=== PATIENT | female | born 1960 | race Caucasian/White ===

== ENCOUNTER → 2023-08-22 | Outpatient (CLI) | payer OTHER | LOC: LAB 16:25 → LAB SHORT 16:25 | DX: L97.911 Non-pressure chronic ulcer of unspecified part of right lower leg limited to breakdown of skin (principal) ==

== ENCOUNTER 2024-03-02 20:58 | Inpatient (IN) | payer OTHER ==
[~2024-03-02] VITALS: Ht 167.6 cm; Wt 90.7 kg
[2024-03-02] MEDS ORDERED: CALCITRIOL0.25 MC4 PO (21:15)
[2024-03-02] MEDS ORDERED: EUTHYROX175 MC1 PO (21:15)
[2024-03-02] MEDS ORDERED: LOSARTAN-HCTZ1 EACH PO (21:15)
[2024-03-02] MEDS ORDERED: albuterol sulfate HF INH (21:16)
[2024-03-02] MEDS ORDERED: ATOR40TA PO (21:16)
[2024-03-02] MEDS ORDERED: HYDHCL25 PO (21:17)
[2024-03-02 21:20] LABS: BASOPHILS ABSOLUTE AUTO 0.02 K/mm3 (0.00-0.23); BASOPHILS PERCENT AUTO 0 % (0-2); EOSINOPHILS ABSOLUTE AUTO 0.19 K/mm3 (0.00-0.68); EOSINOPHILS PERCENT AUTO 2 % (0-6); Hemoglobin 9.5 g/dL (11.5-16.0); IMMATURE GRAN ABSOLUTE AUTO 0.02 K/mm3 (0.00-0.10); IMMATURE GRAN PERCENT AUTO 0 % (0-1); LYMPHOCYTES ABSOLUTE AUTO 2.08 K/mm3 (0.84-5.20); LYMPHOCYTES PERCENT AUTO 25 % (21-46); MONOCYTES ABSOLUTE AUTO 0.38 K/mm3 (0.16-1.47); MONOCYTES PERCENT AUTO 5 % (4-13); Mean Corpuscular HGB Conc 35.2 g/dL (31.5-36.5); Mean Corpuscular Volume 85 fL (80-100); Mean Platelet Volume 10.6 fL (9.1-12.4); NEUTROPHILS PERCENT AUTO 67 % (41-73); Platelet Count 187 K/mm3 (150-400); RDW Coefficient Variation 13.2 % (11.7-14.2); RDW Standard Deviation 40.8 fL (35.1-46.3); Red Blood Cell Count 3.17 M/mm3 (3.80-5.20); White Blood Cell Count 8.19 K/mm3 (4.00-11.30)
[2024-03-02 21:24] LABS: Source, Urine Straight Cath
[2024-03-02 21:27] LABS: Bilirubin, Urine Neg (Neg); Blood, Urine 1+ (Neg); Glucose Qualitative, Urine 4+ (Neg); Ketones, Urine Neg (Neg); Leukocyte Esterase, Urine 2+ (Neg); Nitrite, Urine Neg (Neg); Protein, Urine 1+ (Neg); Specific Gravity, Urine 1.015 (1.003-1.022); Urobilinogen, Urine NORM (Normal)
[2024-03-02 21:42] LABS: Appearance, Urine Hazy (Clear); Color, Urine Pale Yellow (P-Yellow)
[2024-03-02 21:43] LABS: Bacteria Many /hpf; Squamous Epithelial Cells Few /hpf (Few)
[2024-03-02 21:45] LABS: Beta-hydroxybutyrate 0.7 mg/dL (0.2-2.8)
[2024-03-02 21:46] LABS: Albumin, Blood 3.3 g/dL (3.4-5.0); Albumin/Globulin Ratio 0.9 (0.8-1.8); Bilirubin, Total 0.2 mg/dL (0.1-1.0); Bun/Creatinine Ratio 17.4 (12.0-20.0); Calcium, Blood 8.7 mg/dL (8.5-10.1); Creatinine, Blood 2.24 mg/dL (0.40-1.00); Globulin, Blood 3.8 g/dL (2.2-4.0); Potassium, Blood 4.5 mmol/L (3.5-5.5); Total Protein, Blood 7.1 g/dL (6.4-8.2)
[2024-03-02] MEDS ORDERED: CefTRIAXone Sodium 1,000 MG in NS 100 ML IV ONE (21:50)
[2024-03-02] MEDS ORDERED: Insulin Regular 100 Unit/ML 1ML Dose SC ONE ×2 (22:05→23:00)
[2024-03-02] MEDS ORDERED: Ciprofloxacin 400MG/D5 200ML 200 ML IV ONE (22:10)
[2024-03-02] MEDS ORDERED: levETIRAcetam 1,000 MG in NS 100 ML IV ONE (22:20)
[2024-03-02] MEDS ORDERED: PHENYTOIN SODIUM IV ONE (22:50)
[2024-03-02] MEDS ORDERED: NS IV ONE (22:50)
[2024-03-02 22:56] LABS: PCO2 Venous 43.1 mmHg (38-42)
[2024-03-02 22:57] LABS: Base Excess Venous -5.3 mmol/L; Bicarbonate Venous 20.2 mmol/L (24.0-30.0)
[2024-03-02 23:11] LABS: Dilantin (Phenytoin), Total 9.4 ug/mL (10.0-20.0)
[2024-03-03] MEDS ORDERED: FLU VACC TS2024-25(6MOS UP)/PF 45 MCG/0.5 ML SYRINGE IM ONE (00:05)
[2024-03-03] MEDS ORDERED: Acetaminophen 325 MG TABLET PO PRN (00:10)
[2024-03-03] MEDS ORDERED: Ondansetron HCl 2 MG / ML 2ML Vial IV PRN (00:10)
[2024-03-03] MEDS ORDERED: Levothyroxine Sodium 0.175 MG TAB PO SCH (06:00)
[2024-03-03 07:07] LABS: Albumin, Blood 2.9 g/dL (3.4-5.0); Albumin/Globulin Ratio 0.8 (0.8-1.8); Bilirubin, Total 0.2 mg/dL (0.1-1.0); Calcium, Blood 8.3 mg/dL (8.5-10.1); Creatinine, Blood 2.06 mg/dL (0.40-1.00); Globulin, Blood 3.7 g/dL (2.2-4.0); Magnesium, Blood 1.5 mg/dL (1.6-2.4); Potassium, Blood 3.8 mmol/L (3.5-5.5); Total Protein, Blood 6.6 g/dL (6.4-8.2)
[2024-03-03 07:30] LABS: BASOPHILS ABSOLUTE AUTO 0.03 K/mm3 (0.00-0.23); BASOPHILS PERCENT AUTO 0 % (0-2); EOSINOPHILS ABSOLUTE AUTO 0.21 K/mm3 (0.00-0.68); EOSINOPHILS PERCENT AUTO 3 % (0-6); Hematocrit 26.4 % (33.0-51.0); IMMATURE GRAN ABSOLUTE AUTO 0.04 K/mm3 (0.00-0.10); IMMATURE GRAN PERCENT AUTO 1 % (0-1); LYMPHOCYTES ABSOLUTE AUTO 2.45 K/mm3 (0.84-5.20); LYMPHOCYTES PERCENT AUTO 30 % (21-46); MONOCYTES ABSOLUTE AUTO 0.52 K/mm3 (0.16-1.47); MONOCYTES PERCENT AUTO 6 % (4-13); Mean Corpuscular HGB 29.2 pg (26.0-34.0); Mean Corpuscular HGB Conc 34.1 g/dL (31.5-36.5); Mean Corpuscular Volume 86 fL (80-100); Mean Platelet Volume 10.6 fL (9.1-12.4); NEUTROPHILS ABSOLUTE AUTO 4.92 K/mm3 (1.96-9.15); NEUTROPHILS PERCENT AUTO 60 % (41-73); Platelet Count 179 K/mm3 (150-400); RDW Coefficient Variation 13.2 % (11.7-14.2); RDW Standard Deviation 41.1 fL (35.1-46.3); Red Blood Cell Count 3.08 M/mm3 (3.80-5.20); White Blood Cell Count 8.17 K/mm3 (4.00-11.30)
[2024-03-03] MEDS ORDERED: Insulin Regular 100 UNIT/ML 10ML Vial SC SCH (07:30)
[2024-03-03] MEDS ORDERED: PHENY100ER PO (08:33)
[2024-03-03 08:47] VITALS: BP 133/61
[2024-03-03] MEDS ORDERED: Lactobacil 2-S.Thermo-Bifido 1 1 Cap PO SCH (09:00)
[2024-03-03] MEDS ORDERED: Enoxaparin 30 MG/0.3 ML SYR SC SCH (09:00)
[2024-03-03] MEDS ORDERED: Losartan Potassium 50 MG Tab PO SCH (09:00)
[2024-03-03 11:00] VITALS: BP 127/68
[2024-03-03] MEDS ORDERED: PHENYTOIN SODI100 MG PO (11:14)
[2024-03-03] MEDS ORDERED: INSULANPEN SC (11:15)
[2024-03-03] MEDS ORDERED: INSULIN AS100 UNIT/8 SC (11:17)
--- NOTE | 2024-03-03 13:01 | NUR ---
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 HER FAMILY STATES HER TOUNG SWELLS UP AND SHE CANT SWALLOW OR BREATHE IF SHE CONSUMES IT. ADDED TO THE PT ALLERGY LIST AND NOTIFIED THE KITCHEN OF THE ALLERGY. AOC DIRECTOR INTELLIGENCE OFFICER MADE AWARE WELL.
--- NOTE | 2024-03-03 13:03 | NUR ---
CLAUSTRAPHOBIA- PT FAMILY AT THE BEDSIDE FILLING OUT THE MRI SCREENING FORM. THE PT APPEARED TO BE COMPLETELY PANICKED AT THE THOUGHT OF AN MRI. CALLED DR PATTON FOR A PRN DOSE OF ANXIETY MEDS TO HELP THE PT RELAX FOR THE MRI. TRAIN CONDUCTOR CALLED MRI TIME IS PLANNED FOR 1500. DR PATTON SUGGESTED GIVING THE MED 30 MIN PRIOR AT 1430.
[2024-03-03] MEDS ORDERED: Albuterol HFA200 ACT/6.7 GM INH INH PRN (13:20)
[2024-03-03] MEDS ORDERED: LORazepam 0.5 MG Tab PO ONE (14:30)
[2024-03-03 16:20] VITALS: BP 141/65
[2024-03-03] MEDS ORDERED: B-121000 MC3 PO (16:59)
[2024-03-03] MEDS ORDERED: Aspir 8181 MG PO (17:00)
[2024-03-03] MEDS ORDERED: OZEMPIC0.25 MG/02 SC (17:02)
[2024-03-03] MEDS ORDERED: NS 250 ML IV PRN (18:40)
--- NOTE | 2024-03-03 18:45 | NUR ---
SHIFT SUMMARY- PT WAS ADMITTED THROUGH THE ED FOR TOXIC METABOLIC ENCEPHALOPATHY. WHEN SHE ARRIVED ON MED FLOOR SHE WAS TALKING TO STAFF AND MID SCENTENCE SHE WENT SILENT AND STILL AND BEGAN TO GAZE LEFT. A LTIILE LATER SHE DID THE SAME AND HAD A GAZE RIGHT. PT HOME MEDS WERE RESTARTED ONCE SHE WAS ADMITTED. SHE HAD STOPPED TAKING THEM A WEEK OR MORE AGO FOR UNKNOWN REASONS. PT HAD HIGH BG, SHE REFUSED TO EAT HER LUNCH AFTER BEING TREATED FOR BG GREATER THAN 300. AT DINNER TIME HER BG WAS 299. PT FAMILY IS AT THE BEDSIDE ASSISTING THE PT WITH DINNER. THEY JUST CAME OUT AND INFORMED STAFF THE PT HAD ANOTHER "EPISODE" WHERE SHE JUST PAUSED AND GAZED OFF TO ONE SIDE. WILL COMPLETE BEDSIDE REPORT WITH NIGHT RN HUMBERTO.
[2024-03-03 19:46] VITALS: BP 130/60
[2024-03-03] MEDS ORDERED: Ciprofloxacin 400MG/D5 200ML 200 ML IV SCH (21:00)
[2024-03-03] MEDS ORDERED: Insulin Glargine-Yfgn 100 Unit/mL 3 ML SYR SC SCH (21:00)
[2024-03-04 03:23] VITALS: BP 130/60
--- NOTE | 2024-03-04 04:44 | NUR ---
SHIFT SUMMARY PATIENT HAD NO ACUTE CHANGES. NO SEIZURE ACTIVITY OBSERVED. AXOX 4 AND BEDREST. LBKA. PIV INTACT. IV ABX INFUSED. DENIES CHEST PAIN, SOB, AND N/V. CBG 307. VSS/AFEBRILE. PUREWICK IN PLACE FOR I&O'S. SLEPT ON/OFF. CALL LIGHT IN REACH. BED IN LOWEST POSITION. WILL CONTINUE TO MONITOR UNTIL DAY SHIFT NURSE ASSUMES CARE.
[2024-03-04 05:14] LABS: BASOPHILS ABSOLUTE AUTO 0.02 K/mm3 (0.00-0.23); BASOPHILS PERCENT AUTO 0 % (0-2); EOSINOPHILS ABSOLUTE AUTO 0.16 K/mm3 (0.00-0.68); EOSINOPHILS PERCENT AUTO 3 % (0-6); Hematocrit 25.6 % (33.0-51.0); Hemoglobin 8.9 g/dL (11.5-16.0); IMMATURE GRAN ABSOLUTE AUTO 0.02 K/mm3 (0.00-0.10); IMMATURE GRAN PERCENT AUTO 0 % (0-1); LYMPHOCYTES PERCENT AUTO 31 % (21-46); MONOCYTES ABSOLUTE AUTO 0.45 K/mm3 (0.16-1.47); MONOCYTES PERCENT AUTO 7 % (4-13); Mean Corpuscular HGB 29.3 pg (26.0-34.0); Mean Corpuscular HGB Conc 34.8 g/dL (31.5-36.5); Mean Corpuscular Volume 84 fL (80-100); Mean Platelet Volume 10.3 fL (9.1-12.4); NEUTROPHILS ABSOLUTE AUTO 3.55 K/mm3 (1.96-9.15); NEUTROPHILS PERCENT AUTO 58 % (41-73); Platelet Count 152 K/mm3 (150-400); RDW Coefficient Variation 13.2 % (11.7-14.2); RDW Standard Deviation 40.8 fL (35.1-46.3); Red Blood Cell Count 3.04 M/mm3 (3.80-5.20)
[2024-03-04 05:40] LABS: Bun/Creatinine Ratio 16.7 (12.0-20.0); Calcium, Blood 8.7 mg/dL (8.5-10.1); Creatinine, Blood 2.21 mg/dL (0.40-1.00); Potassium, Blood 3.9 mmol/L (3.5-5.5)
[2024-03-04 07:15] VITALS: BP 125/54
[2024-03-04 09:00] LABS: Dilantin (Phenytoin), Total 12.1 ug/mL (10.0-20.0)
[2024-03-04 14:39] VITALS: BP 144/71
--- NOTE | 2024-03-04 16:51 | NUR ---
PT FAMILY IS AT THE BEDSIDE- PT SITTING AT THE EOB, FAMILY STATES SHE JUST HAD AN EPISODE, PLACED A STAT ORDER FOR PROCALCITONIN LAB. CALLED LAB AND ASKED FOR A TECH TO COME DO THE DRAW JUAN ANTONIO. PER DR PATTON'S VERBAL ORDER EARLIER TODAY. PT HAS HAD A FEW EPISODES LIKE THIS TODAY BUT STAFF WERE NOT ABLE TO DETERMINE IF THEY JUST HAPPENED OR IF THE PT WAS JUST WAKING FROM SLEEP. THIS EPISODE WAS WITNESSED SO THE LAB WAS ORDERED.
--- NOTE | 2024-03-04 17:03 | NUR ---
CALLED DR TO TALK ABOUT THE PT ELEVATED BG. SPOKE ABOUT THE STAT LAB FOR THE RECENT EPISODE. THIS RN ORDERED PROCALCITONIN IN [place] OF PROLACTIN. CALLED LAB THEY WILL DRAW FOR PROLACTIN PROCALCITONIN WAS DC'D
[2024-03-04] MEDS ORDERED: Insulin Human Lispro 100 Units/ML 3ML Syringe SC SCH ×3 (17:20→21:00)
--- NOTE | 2024-03-04 18:29 | NUR ---
SHIFT SUMMARY- PT HAS HAD SEVERAL EPISODES. THIS EVENING THIS RN WITNESSED ONE WHERE THE PT WAS SITTING UP AT THE EOB AND SHE WAS LOOKING AT THIS RN. WHEN SHE WAS SPOKEN TO, THE PT HAD NO FACIAL RESPONSE; SHE TRACKED THIS RN WITH HER EYES BUT HER HEAD DID NOT TURN, THIS WAS THE LONGEST EPISODE OF NOTE AND HER EYELIDS TWITCHED (FLICKERED). LASTING APPROXIMATELY 1.5 TO 2 MINUTES, SHE DID NOT SEEM TO KNOW THIS RN WAS PRESENT AT ALL. MINUTES LATER SHE HAD NO RECOLECTION OF THE INCIDENT AT ALL. PT IS BACK TO HER BASELINE AT THIS TIME SITTING AT THE EOB EATING HER DINNER. PLACED A CALL TO FOOD [facility] [place] THE PT RECIEVED SUGAR FREE PUDDING ON HER TRAY. CLARIFIED WITH MORENO IN [facility] [place] THE PT HAS AN ALLERGY TO ARTIFICIAL SWEETENERS AND THEY CAN NOT BE SENT TO HER. SHE CHANGED THE DIET INFO TO REFLECT THAT ALLERGY. PT DID NOT RECIEVE THE PUDDING. THERE IS A SIGN ON THE ROOM DOOR TO PREVENT ACCIDENTAL INGESTION OF SUGAR FREE PRODUCTS.
[2024-03-04 19:27] VITALS: BP 143/64
[2024-03-05 03:59] VITALS: BP 139/62
--- NOTE | 2024-03-05 04:15 | NUR ---
SOFTWARE QUALITY AUTOMATION ENGINEER SUMMARY VSS. ACCU CHECK AT HS WAS 270, INSULIN COVERAGE ADMINISTERED - SEE MAR FOR DETAILS. SOME APPARENT CONFUSION NOTED WHEN SPEAKING TO PT DURING THE NIGHT, SHE WOULD LOOK AT NURSE WITH BLANK STARE WHEN ASKED SOME QUESTIONS, NO NOTED S/S SEIZURE ACTIVITY. ABLE TO REPOSITION SELF IN BED WITHOUT ASSIST. HAS BEEN RESTING QUIETLY WITH OCCASIONAL INTERRUPTION WHILE PLAYING ON PERSONAL LAP TOP COMPUTER. CURRENTLY RESTING QUIETLY IN BED WITHOUT NOTED DISTRESS. CALL LIGHTIN REACH, RAILS UP X 2 AND BED IN LOW POSITION FOR SAFETY. WILL CONTINUE TO MONITOR
[2024-03-05 07:33] VITALS: BP 147/57
--- NOTE | 2024-03-05 10:15 | NUR ---
AT 0900 WHILE PASSING MEDICATIONS IN PATIENT ROOM, PATIENT SITTING AT EDGE OF BED, ABLE TO HAVE CONVERSATION, ANSWER QUESTIONS, AND TAKE MEDICATIONS. AT 0909 PATIENT BEGAN TO GAZE TO THE RIGHT WITH BOTH EYES, STARING, STARTED LEANING TO THE RIGHT, PATIENT NOT RESPONSIVE, OBSERVED HAVING A SEIZURE; THIS RN AND HAND SPRING REPAIRER ASSISTED THE PATIENT INTO A LYING POSITION; MYOTONIC POSSIBLY; LASTED LESS THAN 1 MINUTE. PATIENT CAME TO; WAS ABLE TO MAKE EYE CONTACT AND INTERACT WITH STAFF; WAS AWARE SHE HAD A SEIZURE, STATED SHE FELT FINE; NO POSTICAL STATE OBSERVED, PATIENT APPEARED AT BASELINE PRIOR TO EVENT. DR. PATTON NOTIFIED; ORDERS PLACED.
[2024-03-05 10:54] LABS: BASOPHILS ABSOLUTE AUTO 0.03 K/mm3 (0.00-0.23); BASOPHILS PERCENT AUTO 1 % (0-2); EOSINOPHILS ABSOLUTE AUTO 0.17 K/mm3 (0.00-0.68); EOSINOPHILS PERCENT AUTO 3 % (0-6); Hematocrit 26.4 % (33.0-51.0); Hemoglobin 9.2 g/dL (11.5-16.0); IMMATURE GRAN ABSOLUTE AUTO 0.03 K/mm3 (0.00-0.10); IMMATURE GRAN PERCENT AUTO 1 % (0-1); LYMPHOCYTES ABSOLUTE AUTO 1.63 K/mm3 (0.84-5.20); LYMPHOCYTES PERCENT AUTO 27 % (21-46); MONOCYTES ABSOLUTE AUTO 0.36 K/mm3 (0.16-1.47); MONOCYTES PERCENT AUTO 6 % (4-13); Mean Corpuscular HGB 29.2 pg (26.0-34.0); Mean Corpuscular HGB Conc 34.8 g/dL (31.5-36.5); Mean Corpuscular Volume 84 fL (80-100); Mean Platelet Volume 10.6 fL (9.1-12.4); NEUTROPHILS ABSOLUTE AUTO 3.89 K/mm3 (1.96-9.15); NEUTROPHILS PERCENT AUTO 64 % (41-73); Platelet Count 172 K/mm3 (150-400); RDW Coefficient Variation 13.1 % (11.7-14.2); RDW Standard Deviation 40.1 fL (35.1-46.3); Red Blood Cell Count 3.15 M/mm3 (3.80-5.20); White Blood Cell Count 6.11 K/mm3 (4.00-11.30)
[2024-03-05 11:22] LABS: Anion Gap 12 mmol/L (3-11); Blood Urea Nitrogen 37 mg/dL (8-24); Bun/Creatinine Ratio 17.2 (12.0-20.0); CO2, Blood 23 mmol/L (21-32); Calcium, Blood 8.6 mg/dL (8.5-10.1); Chloride, Blood 103 mmol/L (98-108); Creatinine, Blood 2.15 mg/dL (0.40-1.00); Dilantin (Phenytoin), Total 12.1 ug/mL (10.0-20.0); Glomerular Filtration Rate 25 (60-); Glucose, Blood 336 mg/dL (70-99); Potassium, Blood 3.6 mmol/L (3.5-5.5); Sodium, Blood 134 mmol/L (136-145)
--- NOTE | 2024-03-05 13:39 | NUR ---
SEIZURE OBSERVED AND REPORTED FROM HOME VISITOR AT 1310; REPORTED PATIENT'S RIGHT EYE GAZE, TURNING TOWARDS RIGHT, PATIENT HEAD JERKING AND LIP SMACKING. LASTING 1.5 MINUTES. PATIENT HAD A SUBSEQUENT SEIZURE WHILE THIS RN PRESENT ABOUT 3 MINUTES AFTER THE 1310 EPISODE, LASTING 1.5 MINUTES. PATIENT APPEARING POSTICTAL. PATIENT UNABLE TO TELL US HER NAME OR WHERE SHE WAS; APPEARING FATIGUED. PATIENT PLACED BACK INTO BED. CALL MADE TO DR. PATTON; NEW ORDERS PLACED. 1340 PATIENT HAD ANOTHER SEIZURE; MORE AGGRESSIVE FACIAL MOVEMENTS AND LIP JERKING; MOSTLY ON RIGHT SIDE. LASTING [address] PATTON NOTIFIED. PATIENT IN BED, EEG SET UP BEING PERFORMED, NO SIGNS OR SYMPTOMS OF DISTRESS WITH PATIENT; APPEARING LETHARGIC.
[2024-03-05] MEDS ORDERED: levETIRAcetam 1,500 MG in NS 100 ML IV SCH (14:00)
[2024-03-05 15:47] VITALS: BP 148/75
--- NOTE | 2024-03-05 17:34 | NUR ---
SHIFT SUMMARY: PATIENT IS A&OX1-3 DEPENDING ON POSTICTAL STATE. SHE HAS HAD 5 OBSERVED SEIZURES TODAY; MOST RECENT ONE BEING NOTICED AT 1655 WHEN THIS RN WAS WALKING PAST THE PATIENT'S ROOM, PATIENT WAS SITTING AT THE EDGE OF THE BED, ON HER TABLE WHEN SHE WAS ACTIVELY IN A SEIZURE; SIMILAR STATES OF HER PREVIOUS ONES. UNSURE HOW LONG THIS CURRENT EPSIODE WAS, BUT LAST 1 MINUTE WHILE THIS RN WAS AT BEDSIDE. DR. PATTON NOTIFIED. ATTEMPT TO TRANSFER PATIENT TO [facility]; WAS DENIED, REQUESTING A 1:1 SITTER; WAS DENIED, GOING TO PLACE A CAMERA PRIOR TO TRANSFERRING TO PCU; DISCUSSED CASE WITH TRACK INSPECTOR AND DR. PATTON. PATIENT IS SITTING AT BEDSIDE, ON HER TABLE, ALERT, IS ABLE TO MADE EYE CONTACT WITH ME AND ANSWER QUESTIONS. SHE STATES THAT SHE STARTED HAVING SEIZURES THE DAY BEFORE YESTERDAY DUE TO NOT TAKING HER MEDICATIONS. SHE STATES THAT THEY COME WITHOUT A WARNING. SHE REPORTS THAT SHE HAS NEVER FALLEN DURING A SEIZURE. HER BED ALARM IS SET, CALL LIGHT WITHIN REACH, NO SIGNS OR SYMPTOMS OF DISTRESS, PLAN OF CARE ONGOING. ATIVAN BROUGHT UP TO DR. PATTON, NO NEW ORDERS.
--- NOTE | 2024-03-05 19:20 | NUR ---
AVASURE CAMERA SET UP FOR PATIENT. FAMILY AT BEDSIDE; SEIZURE WITNESSED BY FAMILY AND AVASURE CAMERA.
--- NOTE | 2024-03-05 19:21 | NUR ---
SEIZURE ACTIVITY: 1822 LASTING LESS THAN 1 MIN; WITNESS BY THIS RN 1830 LASTING 2 MIN WITNESSED AND REPORTED BY FAMILY 1838 LASTING 2 MIN WITNESSED AND REPORTED BY FAMILY FAMILY ALSO STATED THAT PATIENT HAD ONE ON THE PHONE AT 1040 THIS MORNING. THAT WAS NOT WITNESSED.
[2024-03-05 23:15] VITALS: BP 132/62
--- NOTE | 2024-03-06 03:45 | NUR ---
QUALITY REVIEW SPECIALIST SUMMARY VSS. DAY SHIFT REPORTED SEVERAL EPISODES OF SEIZURE ACTIVITY AND 1:1 SITTER PLACED TO MONITOR FOR IT. RECEIVING IV KEPPRA BID. TOLERATING MED WELL. NO NOTED S/S SEIZURE ACTIVITY OF THIS WRITING THIS SHIFT. OCCASIONAL SLOW RESPONSE TO QUESTIONS BUT OTHERWISE NOTHING OBSERVED. AWAKE AT INTERVALS TO PLAY ON HER LAP TOP COMPUTER. REMAINS ON BEDREST DUE TO BKA AND NO PROSTHESIS IN ROOM. ABLE TO REPOSITION SELF IN BED FOR COMFORT AND SKIN MAINTENANCE. CALL LIGHT IN REACH, RAILS UP X 2 AND BED IN LOW POSITION FOR SAFETY. WILL CONTINUE TO MONITOR
[2024-03-06 04:48] VITALS: BP 136/61
[2024-03-06 05:43] LABS: BASOPHILS ABSOLUTE AUTO 0.04 K/mm3 (0.00-0.23); BASOPHILS PERCENT AUTO 1 % (0-2); EOSINOPHILS ABSOLUTE AUTO 0.19 K/mm3 (0.00-0.68); EOSINOPHILS PERCENT AUTO 3 % (0-6); Hematocrit 26.4 % (33.0-51.0); Hemoglobin 8.9 g/dL (11.5-16.0); IMMATURE GRAN ABSOLUTE AUTO 0.02 K/mm3 (0.00-0.10); IMMATURE GRAN PERCENT AUTO 0 % (0-1); LYMPHOCYTES ABSOLUTE AUTO 2.26 K/mm3 (0.84-5.20); LYMPHOCYTES PERCENT AUTO 33 % (21-46); MONOCYTES ABSOLUTE AUTO 0.43 K/mm3 (0.16-1.47); MONOCYTES PERCENT AUTO 6 % (4-13); Mean Corpuscular HGB 28.7 pg (26.0-34.0); Mean Corpuscular HGB Conc 33.7 g/dL (31.5-36.5); Mean Corpuscular Volume 85 fL (80-100); Mean Platelet Volume 10.9 fL (9.1-12.4); NEUTROPHILS ABSOLUTE AUTO 3.89 K/mm3 (1.96-9.15); NEUTROPHILS PERCENT AUTO 57 % (41-73); Platelet Count 171 K/mm3 (150-400); RDW Coefficient Variation 13.1 % (11.7-14.2); RDW Standard Deviation 40.3 fL (35.1-46.3); White Blood Cell Count 6.83 K/mm3 (4.00-11.30)
[2024-03-06 06:22] LABS: Albumin/Globulin Ratio 0.8 (0.8-1.8); Bilirubin, Total 0.4 mg/dL (0.1-1.0); Bun/Creatinine Ratio 16.8 (12.0-20.0); Calcium, Blood 8.6 mg/dL (8.5-10.1); Creatinine, Blood 1.97 mg/dL (0.40-1.00); Globulin, Blood 3.7 g/dL (2.2-4.0); Potassium, Blood 3.8 mmol/L (3.5-5.5); Total Protein, Blood 6.7 g/dL (6.4-8.2)
[2024-03-06 07:15] VITALS: BP 125/62
[2024-03-06] MEDS ORDERED: LevETIRAcetam 500 MG Tab PO SCH ×2 (09:00→21:00)
--- NOTE | 2024-03-06 11:37 | NUR ---
AVASURE CAMERA ALARMED AT 1130; PATIENT ACTIVELY HAVING A SEIZURE; LASTING 2 MINUTES. PATIENT POSTICAL; UNABLE TO ANSWERING ORIENTATION QUESTIONS, BUT CAN ANSWER YES, NO, AND I DON'T KNOW TO QUESTIONS. DR. PATTON NOTIFIED.
--- NOTE | 2024-03-06 12:11 | NUR ---
AVASURE CAMERA ALARMED AT 1204; PATIENT HAVING ANOTHER SEIZURE; THIS ONE LASTED [address] PATTON NOTIFIED. AGAIN PATIENT POSTICAL; ALERT, BUT UNABLE TO ANSWER QUESTIONS; OTHER THAN YES, NO AND DID SAY I AM NOT SURE WHEN ASKED WHERE SHE WAS. PATIENT REPORTS FEELING TIRED.
[2024-03-06] MEDS ORDERED: LevETIRAcetam 500 MG Tab PO ONE (13:00)
[2024-03-06 15:43] VITALS: BP 152/91
--- NOTE | 2024-03-06 16:48 | NUR ---
SHIFT SUMMARY: PATIENT HAD AT LEAST 2 OBSERVED SEIZURES TODAY THAT WERE DOCUMENTED ON AND REPORTED TO DR. PATTON. PATIENT HAS BEEN FATIGUE TODAY, TAKING LONG PERIODS OF REST. SHE IS ALERT AND WILL WAKE UP TO VERBAL STIMULI AND INTERACT WITH STAFF. SHE HASN'T EATEN MUCH TODAY; STATING SHE ISN'T HUNGRY. SHE IS IN BED, WATCHING TV, CALL LIGHT WITHIN REACH, BED ALARM ON, AVASURE CAMERA IN PLACE, NO SIGNS OR SYMPTOMS OF DISTRESS, PLAN OF CARE ONGOING. KEPPRA WAS INCREASED TODAY.
[2024-03-06 19:38] VITALS: BP 136/54
--- NOTE | 2024-03-06 22:30 | NUR ---
CAMERA WENT OFF AT 2144. PT WAS ACTIVELY HAVING A SEIZURE UNKNOWN FOR HOW LONG.POSTICTAL WAS UNABLE TO ANSWER ANY QUESTIONS BUT WAS ABLE TO SAY YES OR NO AND POINT HER FINGER WHEN I ASKED HER A QUESTION AND ABLE TO SAY I DONT NO. AT THIS TIME NOW SHES ALERT ORIENTED ABLE TO ANSWER ORIENTATION QUESTIONS AND VERBALIZE TO ME THAT SHES OK ATTEMPTED TO CALL DR. JARVIS TO INFORM HIM WITH NO ANSWER. WILL ATTEMPT AGAIN LATER TO CALL HIM
--- NOTE | 2024-03-07 00:39 | NUR ---
SPOKE WITH DR. FREEDMAN AND INFORMED HIM ABOUT PTS SEIZURE ACTIVITY. HE STATED TO JUST CONTINUE TO MONITOR
[2024-03-07 03:11] VITALS: BP 151/83
--- NOTE | 2024-03-07 03:23 | NUR ---
CAMERA WENT OFF AND I WENT IN AND PT WAS HAVING A SEIZURE THAT LASTED 1-2 MINUTES. SHE HAD HER HEAD TURNED TO THE RIGHT AND BOTH EYES WERE TWITCHING. IN HER POSTICTAL STATE SHE WAS ABLE TO ANSWER YES AND NO QUESTIONS. WILL CONTINUE TO MONITOR
--- NOTE | 2024-03-07 03:55 | NUR ---
SHIFT SUMMARY PT ALERT ORIENTED ABLE TO VERBALIZE NEEDS EXCEPT FOR IN HER POSTICTAL STATE. AFTER HER SEIZURE SHES ABLE TO ANSWER YES AND NO QUESTIONS ONLY BUT AFTER A FEW MINUTES SHES ABLE TO ANSWER ORIENTATION QUESTIONS. SHE HAD 2 SEIZURES ON THIS SHIFT ONE AT 2145 AND OTHER ART 0309. THEY EACH LASTED APPROX 1-2 MINUTES. THE SEIZURES WERE REPORTED TO WOMEN'S LACROSSE COACH . SHE HAS A MethylGene CAMERA IN PLACE THAT ALERTS US WITH SEIZURE ACTIVITY. REMAINS ON KEPPRA AND DILANTIN FOR SEIZURES. RESTING IN BED AT THIS TIME WITH PINKY LIGHT IN REACH
--- NOTE | 2024-03-07 06:19 | NUR ---
PTS CAMERA INFORMED ME AT 0605 OF PT HAVING A SEIZURE. WENT INTO HER ROOM AND HER HEAD WAS TURNED TO THE RIGHT WITH HER EYES BLINKING AND NOT RESPONDING. THIS LASTED APPROX. 1 MINUTE. IN HER POSTICTAL STATE SHE WAS AWAKE AND ALERT AND COULD ANSWER YES AND NO QUESTIONS ONLY. AFTER A FEW MINUTES SHE WAS MORE ALERT AND WAS ABLE TO RESPOND TO QUESTIONS. CALLED DR. FREEDMAN AND INFORMED HIM OF THIS.
[2024-03-07 06:23] LABS: BASOPHILS ABSOLUTE AUTO 0.04 K/mm3 (0.00-0.23); BASOPHILS PERCENT AUTO 1 % (0-2); EOSINOPHILS PERCENT AUTO 3 % (0-6); Hematocrit 26.5 % (33.0-51.0); Hemoglobin 9.1 g/dL (11.5-16.0); IMMATURE GRAN ABSOLUTE AUTO 0.02 K/mm3 (0.00-0.10); IMMATURE GRAN PERCENT AUTO 0 % (0-1); LYMPHOCYTES ABSOLUTE AUTO 2.31 K/mm3 (0.84-5.20); LYMPHOCYTES PERCENT AUTO 36 % (21-46); MONOCYTES ABSOLUTE AUTO 0.45 K/mm3 (0.16-1.47); MONOCYTES PERCENT AUTO 7 % (4-13); Mean Corpuscular HGB 29.2 pg (26.0-34.0); Mean Corpuscular HGB Conc 34.3 g/dL (31.5-36.5); Mean Corpuscular Volume 85 fL (80-100); Mean Platelet Volume 10.6 fL (9.1-12.4); NEUTROPHILS ABSOLUTE AUTO 3.38 K/mm3 (1.96-9.15); NEUTROPHILS PERCENT AUTO 53 % (41-73); Platelet Count 173 K/mm3 (150-400); RDW Coefficient Variation 13.2 % (11.7-14.2); RDW Standard Deviation 40.5 fL (35.1-46.3); Red Blood Cell Count 3.12 M/mm3 (3.80-5.20)
[2024-03-07 06:56] LABS: Bun/Creatinine Ratio 17.9 (12.0-20.0); Calcium, Blood 8.9 mg/dL (8.5-10.1); Creatinine, Blood 1.9 mg/dL (0.40-1.00); Potassium, Blood 4.1 mmol/L (3.5-5.5)
[2024-03-07 07:31] VITALS: BP 135/44
[2024-03-07 07:43] LABS: Dilantin (Phenytoin), Total 9.1 ug/mL (10.0-20.0)
[2024-03-07] MEDS ORDERED: LevETIRAcetam 500 MG Tab PO ONE (10:00)
[2024-03-07] MEDS ORDERED: FOSPHENYTOIN PE IV STA (10:18)
[2024-03-07] MEDS ORDERED: NS IV STA (10:18)
[2024-03-07] MEDS ORDERED: levETIRAcetam 500 MG in NS 100 ML IV ONE (10:20)
[2024-03-07 10:49] VITALS: BP 135/44
--- NOTE | 2024-03-07 11:24 | NUR ---
CALLED PT'S DAUGHTER TO LET HER KNOW ABOUT THE TRANSFER TO [facility]
--- NOTE | 2024-03-07 12:23 | NUR ---
PATIENT'S R FOREARM IV INFILTRATED AFTER CEREBYX WAS STARTED. WAS NOTIFIED BY MANNY RN. IV WAS REMOVED; PHARMACY WAS CONTACTED TO SEE IF THERE ARE ANY PRECAUTIONS FOR CEREBYX INFILTRATION. PHARMACY ADVISED TO APPLY WARM COMPRESS AND WATCH SITE. NEW IV STARTED AND MEDICATION RESTARTED.
--- NOTE | 2024-03-07 14:10 | NUR ---
DISCHARGE NOTE: MEDICAL TRANSPORT ARRIVED VIA [facility] TO TAKE PATIENT TO [facility] IN [place]. CALLED AND GAVE REPORT TO DORA PALACIOS. PATIENT BATHED, DRESSED, AND BELONGINGS COLLECTED, AND MEDICATIONS ADMININSTERED. PATIENT CALLED AND NOTIFIED HER DAUGHTER OF TRANSFER. PATIENT TRANSFERRED TO [facility]. NO SIGNS OR SYMPTOMS OF DISTRESS DURING DISCHARGE. REPORT AND PAPERWORK GIVEN TO MEDICAL TRANSPORTERS.
[2024-03-07] MEDS ORDERED: LevETIRAcetam 500 MG Tab PO SCH (21:00)
== END 2024-03-07 13:44 | disposition short-term general hospital (02) | DRG 100 ==
LOC: ER 20:58 → ERHOLD 03-03 00:04 → MEDS 03-03 08:39
PROVIDERS: Emergency Medicine; Internal Medicine; ADMIT Student in an Organized Health Care Education/Training Program
DX: G40.909 Epilepsy, unspecified, not intractable, without status epilepticus (principal); G92.8 Other toxic encephalopathy; Q28.2 Arteriovenous malformation of cerebral vessels; N18.4 Chronic kidney disease, stage 4 (severe); N39.0 Urinary tract infection, site not specified; E78.5 Hyperlipidemia, unspecified; E11.51 Type 2 diabetes mellitus with diabetic peripheral angiopathy without gangrene; E11.65 Type 2 diabetes mellitus with hyperglycemia; E11.22 Type 2 diabetes mellitus with diabetic chronic kidney disease; I12.9 Hypertensive chronic kidney disease with stage 1 through stage 4 chronic kidney disease, or unspecified chronic kidney disease; E03.9 Hypothyroidism, unspecified; Z89.512 Acquired absence of left leg below knee; Z88.1 Allergy status to other antibiotic agents; Z88.8 Allergy status to other drugs, medicaments and biological substances; Z79.890 Hormone replacement therapy; Z79.899 Other long term (current) drug therapy
CPT/HCPCS: 36415; 51701; 70470; 70553; 80048; 80053; 80185; 81001; 82010; 82803; 82947; 83036; 83735; 84145; 84146; 84439; 84443; 85025; 87077; 87086; 87186; 93005; 93010; 94640; 94664; 94760; 95819; 96365-59; 96366; 96367-59; 96368; 96372; 99285-25; A9270; A9579; G0378; J0696; J0744; J1165; J1650; J1815; J1953; J7050; Q2009; Q9967

== ENCOUNTER 2025-03-02 16:30 | Emergency (ER) | payer OTHER ==
[~2025-03-02] VITALS: Ht 165.1 cm; Wt 90.7 kg
[~2025-03-02 16:30] MED LIST changes: -ALBU90OI INH; -ASPI81CH PO; -CALC.25 PO; -Dilantin 100 m100 MG PO; -EUTHYROX175 MCG PO; -HYDPAM50 PO; -IPRAT-ALBUT 0.5-3 ML INH; -LEVE500 PO; -LEVO750 PO; -LOSA50 PO; -VISBIOME 112.51 EACH PO
[2025-03-02 17:43] LABS: Alanine Aminotransfer (ALT/SGP 24.0 U/L (12-78); Albumin, Blood 2.4 g/dL (3.4-5.0); Albumin/Globulin Ratio 0.5 (0.8-1.8); Anion Gap 13.0 mmol/L (3-11); Aspartate Aminotrans (AST/SGOT 33.0 U/L (12-37); Bilirubin, Total 0.4 mg/dL (0.1-1.0); Blood Urea Nitrogen 29.0 mg/dL (8-24); CO2, Blood 18.0 mmol/L (21-32); Calcium, Blood 8.1 mg/dL (8.5-10.1); Chloride, Blood 103.0 mmol/L (98-108); Creatinine, Blood 2.1 mg/dL (0.40-1.00); Globulin, Blood 4.4 g/dL (2.2-4.0); Glucose, Blood 487.0 mg/dL (70-99); Potassium, Blood 4.7 mmol/L (3.5-5.5); Sodium, Blood 129.0 mmol/L (136-145); Total Protein, Blood 6.8 g/dL (6.4-8.2)
[2025-03-02 18:10] LABS: BASOPHILS ABSOLUTE AUTO 0.03 K/mm3 (0.00-0.23); BASOPHILS PERCENT AUTO 0 % (0-2); EOSINOPHILS ABSOLUTE AUTO 0.00 K/mm3 (0.00-0.68); EOSINOPHILS PERCENT AUTO 0 % (0-6); Hematocrit 26.4 % (33.0-51.0); Hemoglobin 8.5 g/dL (11.5-16.0); IMMATURE GRAN ABSOLUTE AUTO 0.11 K/mm3 (0.00-0.10); IMMATURE GRAN PERCENT AUTO 1 % (0-1); LYMPHOCYTES ABSOLUTE AUTO 1.39 K/mm3 (0.84-5.20); LYMPHOCYTES PERCENT AUTO 13 % (21-46); MONOCYTES ABSOLUTE AUTO 0.85 K/mm3 (0.16-1.47); MONOCYTES PERCENT AUTO 8 % (4-13); Mean Corpuscular HGB Conc 32.2 g/dL (31.5-36.5); Mean Corpuscular Volume 88 fL (80-100); NEUTROPHILS ABSOLUTE AUTO 8.32 K/mm3 (1.96-9.15); NEUTROPHILS PERCENT AUTO 78 % (41-73); NRBC ABSOLUTE 0.00 K/mm3 (0.00-0.02); NRBC Auto 0.0 /100 WBC (0.0-0.2); Platelet Count 240 K/mm3 (150-400); RDW Coefficient Variation 13.4 % (11.7-14.2); RDW Standard Deviation 43.7 fL (35.1-46.3)
[2025-03-02] MEDS ORDERED: NS 1,000 ML IV SCH (18:15)
[2025-03-02 20:45] VITALS: BP 161/66
[2025-03-02] MEDS ORDERED: HYDPAM50 PO (20:53)
== END 2025-03-02 21:20 | disposition home or self-care (01) ==
LOC: ER 16:30
PROVIDERS: Student in an Organized Health Care Education/Training Program
DX: R06.02 Shortness of breath (principal); H10.9 Unspecified conjunctivitis; F41.9 Anxiety disorder, unspecified; E11.9 Type 2 diabetes mellitus without complications; E03.9 Hypothyroidism, unspecified; G40.909 Epilepsy, unspecified, not intractable, without status epilepticus; Z88.1 Allergy status to other antibiotic agents; Z88.0 Allergy status to penicillin; Z79.82 Long term (current) use of aspirin; Z79.890 Hormone replacement therapy; Z79.899 Other long term (current) drug therapy; Z79.4 Long term (current) use of insulin
CPT/HCPCS: 36415; 71260; 80053; 83880; 84484; 85025; 93005; 93010; 99285-25; J7030; Q9967

== ENCOUNTER → 2025-03-02 | Outpatient (CLI) | payer OTHER ==
[~2025-03-02] MED LIST: ALBU90OI INH; ASPI81CH PO; ATOR40TA PO; Aspir 8181 MG PO; B-121000 MC3 PO; CALC.25 PO; CALCITRIOL0.25 MC4 PO; Dilantin 100 m100 MG PO; EUTHYROX175 MC1 PO; EUTHYROX175 MCG PO; HYDHCL25 PO; HYDPAM50 PO; INSULANPEN SC; INSULIN AS100 UNIT/8 SC; IPRAT-ALBUT 0.5-3 ML INH; LEVE500 PO; LEVO750 PO; LOSA50 PO; LOSARTAN-HCTZ1 EACH PO; OZEMPIC0.25 MG/02 SC; PHENY100ER PO; PHENYTOIN SODI100 MG PO; VISBIOME 112.51 EACH PO; albuterol sulfate HF INH
[2025-03-02 15:34] LABS: BASOPHILS ABSOLUTE AUTO 0.01 K/mm3 (0.00-0.23); BASOPHILS PERCENT AUTO 0 % (0-2); EOSINOPHILS ABSOLUTE AUTO 0.00 K/mm3 (0.00-0.68); EOSINOPHILS PERCENT AUTO 0 % (0-6); Hematocrit 22.7 % (33.0-51.0); Hemoglobin 7.8 g/dL (11.5-16.0); IMMATURE GRAN ABSOLUTE AUTO 0.06 K/mm3 (0.00-0.10); IMMATURE GRAN PERCENT AUTO 1 % (0-1); LYMPHOCYTES ABSOLUTE AUTO 0.72 K/mm3 (0.84-5.20); LYMPHOCYTES PERCENT AUTO 9 % (21-46); MONOCYTES ABSOLUTE AUTO 0.62 K/mm3 (0.16-1.47); MONOCYTES PERCENT AUTO 7 % (4-13); Mean Corpuscular HGB Conc 34.4 g/dL (31.5-36.5); Mean Corpuscular Volume 84 fL (80-100); NEUTROPHILS ABSOLUTE AUTO 7.08 K/mm3 (1.96-9.15); NEUTROPHILS PERCENT AUTO 83 % (41-73); NRBC ABSOLUTE 0.00 K/mm3 (0.00-0.02); NRBC Auto 0.0 /100 WBC (0.0-0.2); Platelet Count 193 K/mm3 (150-400); RDW Coefficient Variation 13.5 % (11.7-14.2); RDW Standard Deviation 41.3 fL (35.1-46.3)
== END ==
LOC: LAB SHORT 15:31 → LAB 15:31
PROVIDERS: Family Medicine
DX: R05.9 Cough, unspecified (principal); R06.02 Shortness of breath
CPT/HCPCS: 85025; 85379

== ENCOUNTER 2025-03-06 09:49 | Inpatient (IN) | payer OTHER ==
[~2025-03-06] VITALS: Ht 165.1 cm; Wt 106.0 kg
[~2025-03-06 09:49] MED LIST changes: +HYDPAM50 PO
[2025-03-06] MEDS ORDERED: Ipratropium/Albuterol SulF 2.5-0.5MG/3 ML Amp INH ONE (10:00)
[2025-03-06 10:24] LABS: BASOPHILS ABSOLUTE AUTO 0.03 K/mm3 (0.00-0.23); BASOPHILS PERCENT AUTO 0 % (0-2); EOSINOPHILS ABSOLUTE AUTO 0.11 K/mm3 (0.00-0.68); EOSINOPHILS PERCENT AUTO 1 % (0-6); Hematocrit 26.7 % (33.0-51.0); Hemoglobin 8.7 g/dL (11.5-16.0); IMMATURE GRAN ABSOLUTE AUTO 0.19 K/mm3 (0.00-0.10); IMMATURE GRAN PERCENT AUTO 1 % (0-1); LYMPHOCYTES ABSOLUTE AUTO 2.42 K/mm3 (0.84-5.20); LYMPHOCYTES PERCENT AUTO 17 % (21-46); MONOCYTES ABSOLUTE AUTO 1.37 K/mm3 (0.16-1.47); MONOCYTES PERCENT AUTO 9 % (4-13); Mean Corpuscular HGB Conc 32.6 g/dL (31.5-36.5); Mean Corpuscular Volume 87 fL (80-100); NEUTROPHILS ABSOLUTE AUTO 10.48 K/mm3 (1.96-9.15); NEUTROPHILS PERCENT AUTO 72 % (41-73); NRBC ABSOLUTE 0.03 K/mm3 (0.00-0.02); NRBC Auto 0.2 /100 WBC (0.0-0.2); Platelet Count 234 K/mm3 (150-400); RDW Coefficient Variation 13.5 % (11.7-14.2); RDW Standard Deviation 42.9 fL (35.1-46.3)
[2025-03-06 10:47] LABS: Alanine Aminotransfer (ALT/SGP 31.0 U/L (12-78); Albumin, Blood 2.2 g/dL (3.4-5.0); Albumin/Globulin Ratio 0.4 (0.8-1.8); Anion Gap 13.0 mmol/L (3-11); Aspartate Aminotrans (AST/SGOT 72.0 U/L (12-37); Bilirubin, Total 0.5 mg/dL (0.1-1.0); Blood Urea Nitrogen 31.0 mg/dL (8-24); CO2, Blood 20.0 mmol/L (21-32); Calcium, Blood 8.9 mg/dL (8.5-10.1); Chloride, Blood 104.0 mmol/L (98-108); Creatinine, Blood 2.33 mg/dL (0.40-1.00); Globulin, Blood 5.5 g/dL (2.2-4.0); Glucose, Blood 243.0 mg/dL (70-99); Potassium, Blood 3.9 mmol/L (3.5-5.5); Sodium, Blood 133.0 mmol/L (136-145); Total Protein, Blood 7.7 g/dL (6.4-8.2)
[2025-03-06 11:16] LABS: Influenza A, PCR NEGATIVE (NEGATIVE); Influenza B, PCR NEGATIVE (NEGATIVE); Resp Syncytial Virus, PCR NEGATIVE (NEGATIVE); SARS-Cov-2 (COVID-19) PCR, MMC NEGATIVE (NEGATIVE)
[2025-03-06] MEDS ORDERED: LevoFLOXacin 750 MG/D5W 150ML 150 ML IV ONE (12:05)
[2025-03-06] MEDS ORDERED: NS 1,000 ML IV SCH (12:05)
[2025-03-06] MEDS ORDERED: FLU VACC TS2025-26(6MOS UP)/PF 45 MCG/0.5 ML SYRINGE IM SCH (14:15)
[2025-03-06] MEDS ORDERED: Albuterol 2.5 MG/3 ML VIAL INH PRN (14:35)
--- NOTE | 2025-03-06 15:15 | NUR ---
NURSE NOTE; ATTEMPTED TO OBTAIN REPORT FROM ED. WAS TOLD THAT RN WILL CALL BACK WHEN AVAILABLE.
[2025-03-06] MEDS ORDERED: Tobramycin 0.3% Opth Soln 5 ML LEFTEYE SCH (16:00)
[2025-03-06 16:03] VITALS: BP 157/74
[2025-03-06] MEDS ORDERED: LEVE500 PO (16:26)
[2025-03-06] MEDS ORDERED: Dilantin 100 m100 MG PO (16:26)
[2025-03-06] MEDS ORDERED: ASPI81CH PO (16:28)
[2025-03-06] MEDS ORDERED: CALC.25 PO (16:30)
[2025-03-06] MEDS ORDERED: Insulin Human Lispro 100 Units/ML 3ML Syringe SC SCH (16:30)
[2025-03-06] MEDS ORDERED: B-121000 MC3 PO (16:31)
[2025-03-06] MEDS ORDERED: EUTHYROX175 MCG PO (16:33)
[2025-03-06] MEDS ORDERED: LOSA50 PO (16:34)
[2025-03-06] MEDS ORDERED: Ipratropium/Albuterol SulF 2.5-0.5MG/3 ML Amp INH PRN (16:35)
--- NOTE | 2025-03-06 18:25 | NUR ---
AT [address] PATTON THAT MED REC WAS COMPLETED TO REVIEW AND UPDATE NEEDED.
--- NOTE | 2025-03-06 18:39 | NUR ---
ADMISSION NOTE; PT TO ROOM 311 VIA GURNEY FROM ED AND WAS TRANSFERRED TO MEDICAL FLOOR BED BY SLIDER SHEET. PT ARRIVED IN STABLE CONDITION. FAMILY IS AT BEDSIDE. PT REPOSITIONED AND CHANGED AFTER PT WAS ABLE TO CATCH HER BREATH. FAST FOOD SALES ASSISTANT ATTEMPTED TO CONTACT RT, HOWEVER RT UNAVAIABLE. INITIAL ASSESSMENT COMPLETED. PT SAT UP FOR DINNER, HOWEVER DOES NOT HAVE APPETITE. BED IN LOWEST POSITION AND CALL LIGHT WITHIN REACH.
[2025-03-06 20:08] VITALS: BP 175/74
[2025-03-06] MEDS ORDERED: Insulin Glargine 100 Unit/ML 3 ML SYR SC SCH (21:00)
[2025-03-06 23:38] VITALS: BP 180/74
[2025-03-07 01:19] VITALS: BP 187/69
--- NOTE | 2025-03-07 02:14 | NUR ---
PROVIDER NOTIFIED PT BP 187/69 P 91 COURSE RESPIRATIONS. PROVIDER ORDERED 10 MG HYDRALAZINE IV NOW ONE TIME
[2025-03-07] MEDS ORDERED: HydrALAZINE HCl 20 MG / ML 1ML Vial IV ONE (02:15)
[2025-03-07 04:37] VITALS: BP 182/72
[2025-03-07] MEDS ORDERED: FentaNYL Citrate 50 MCG/ML 2 ML Injection IV PRN (05:10)
[2025-03-07] MEDS ORDERED: Levothyroxine Sodium 0.175 MG TAB PO SCH (06:00)
--- NOTE | 2025-03-07 07:24 | NUR ---
PT HAD EVENTFUL NIGHT. CONSTANT COMPLAINTS OF SoB THAT ARE NOT HELPED WITH BREATHING TREATMENTS WELL GENERALIZED PAIN "I FEEL LIKE I'VE BEEN HIT BY A TRUCK." PT BEGAN THE NIGHT WITH INTENSE ANXIETY AND INCREASING AGITATION. GIVEN PRESCRIBED ATARAX WHICH HELPED SLIGHTLY. REACHED OUT TO PROVIDER TO ACQUIRE AN ORDER FOR PAIN MANAGEMENT, PT REPORTS TAKING FLEXERIL AND GABAPENTIN AT HOME, THOSE WERE ORDERED AND GIVEN WHICH SEEMED TO HELP. BLOOD PRESSURES CONSISTENTLY HIGH THIS EVENING, SBP>170. GIVEN 1X HYDRALAZINE. PT'S WORK OF BREATHING INCREASED THROUGHOUT THE NIGHT. SPOKE WITH PROVIDER AND RECEIVED AN ORDER FOR LASIX 1X. REPLACED IV. PT VOIDING PER CHRISTIN WITH SMALL STREAK OF BM THIS AM. PT USES CALL LIGHT APPROPRIATELY AND IS REFUSING NARCOTICS.
[2025-03-07 07:49] VITALS: BP 157/67
[2025-03-07] MEDS ORDERED: Enoxaparin 40 MG/0.4 ML SYR SC SCH (09:00)
[2025-03-07 10:23] LABS: BASOPHILS ABSOLUTE AUTO 0.03 K/mm3 (0.00-0.23); BASOPHILS PERCENT AUTO 0 % (0-2); EOSINOPHILS ABSOLUTE AUTO 0.09 K/mm3 (0.00-0.68); EOSINOPHILS PERCENT AUTO 1 % (0-6); Hematocrit 23.9 % (33.0-51.0); Hemoglobin 7.7 g/dL (11.5-16.0); IMMATURE GRAN ABSOLUTE AUTO 0.25 K/mm3 (0.00-0.10); IMMATURE GRAN PERCENT AUTO 2 % (0-1); LYMPHOCYTES ABSOLUTE AUTO 1.46 K/mm3 (0.84-5.20); LYMPHOCYTES PERCENT AUTO 13 % (21-46); MONOCYTES ABSOLUTE AUTO 1.00 K/mm3 (0.16-1.47); MONOCYTES PERCENT AUTO 9 % (4-13); Mean Corpuscular HGB Conc 32.2 g/dL (31.5-36.5); Mean Corpuscular Volume 87 fL (80-100); NEUTROPHILS ABSOLUTE AUTO 8.27 K/mm3 (1.96-9.15); NEUTROPHILS PERCENT AUTO 74 % (41-73); NRBC ABSOLUTE 0.00 K/mm3 (0.00-0.02); NRBC Auto 0.0 /100 WBC (0.0-0.2); Platelet Count 239 K/mm3 (150-400); RDW Coefficient Variation 13.5 % (11.7-14.2); RDW Standard Deviation 42.8 fL (35.1-46.3)
[2025-03-07 10:52] LABS: Alanine Aminotransfer (ALT/SGP 27.0 U/L (12-78); Albumin, Blood 2.0 g/dL (3.4-5.0); Albumin/Globulin Ratio 0.4 (0.8-1.8); Anion Gap 12.0 mmol/L (3-11); Aspartate Aminotrans (AST/SGOT 58.0 U/L (12-37); Bilirubin, Total 0.4 mg/dL (0.1-1.0); Blood Urea Nitrogen 28.0 mg/dL (8-24); CO2, Blood 20.0 mmol/L (21-32); Calcium, Blood 8.2 mg/dL (8.5-10.1); Chloride, Blood 106.0 mmol/L (98-108); Creatinine, Blood 2.2 mg/dL (0.40-1.00); Globulin, Blood 4.7 g/dL (2.2-4.0); Glucose, Blood 230.0 mg/dL (70-99); Potassium, Blood 3.7 mmol/L (3.5-5.5); Sodium, Blood 134.0 mmol/L (136-145); Total Protein, Blood 6.7 g/dL (6.4-8.2)
[2025-03-07 11:29] VITALS: BP 153/52
[2025-03-07 13:26] LABS: pH Blood Venous 7.36 (7.34-7.37)
[2025-03-07 15:44] VITALS: BP 171/66
[2025-03-07] MEDS ORDERED: Ipratropium/Albuterol SulF 2.5-0.5MG/3 ML Amp INH SCH (16:15)
--- NOTE | 2025-03-07 17:14 | NUR ---
SHIFT SUMMARY; PT A/OX4 AND AT BEDREST. DURING AM ASSESSMENT, PT OBSERVED HAVING DYSPNEA AND AUDIBLE WHEEZE W/ CRACKLES AUSCULTATED IN THE BASES OF THE LUNGS. RT PAGED PER PATIENT REQUEST AND BREATHING TX ADMINISTERED. RT SUGGESTS THAT PT WOULD BENEFIT FROM STEROID USE TO HELP W/ HER AIRWAY. AT BEDSIDE THIS AM. DUE TO NOTED ANXIETY UPON TAKING PREDNISONE PER PATIENT, DECISION TO TRY SOLU-MEDROL IV. PREDNISONE DISCONTINUED AND PT MEDICATED PER EMAR. THIS AFTERNOON PT EXPERIENCED INCREASED SOB, AUDIBLE WHEEZES HEARD, AND VERBALIZED FEELINGS OF ANXIETY. RT NOTIFIED AND TX GIVEN. PT MEDICATIONED PER EMAR. RT RECOMMENDED INCREASING BREATHING TXFROM PRN TO SCHEDULED. NOTIFIED DR. PATTON, NEW ORDER IN CHART. BED IN LOWEST POSITION AND CALL LIGHT WITHIN REACH.
[2025-03-07 20:08] VITALS: BP 152/63
[2025-03-07] MEDS ORDERED: Insulin Glargine 100 Unit/ML 3 ML SYR SC SCH (21:00)
[2025-03-08 00:04] VITALS: BP 167/75
[2025-03-08 04:26] VITALS: BP 142/69
[2025-03-08 05:09] LABS: BASOPHILS ABSOLUTE AUTO 0.02 K/mm3 (0.00-0.23); BASOPHILS PERCENT AUTO 0 % (0-2); EOSINOPHILS ABSOLUTE AUTO 0.02 K/mm3 (0.00-0.68); EOSINOPHILS PERCENT AUTO 0 % (0-6); Hematocrit 23.0 % (33.0-51.0); Hemoglobin 7.5 g/dL (11.5-16.0); IMMATURE GRAN ABSOLUTE AUTO 0.31 K/mm3 (0.00-0.10); IMMATURE GRAN PERCENT AUTO 3 % (0-1); LYMPHOCYTES ABSOLUTE AUTO 1.44 K/mm3 (0.84-5.20); LYMPHOCYTES PERCENT AUTO 12 % (21-46); MONOCYTES ABSOLUTE AUTO 0.71 K/mm3 (0.16-1.47); MONOCYTES PERCENT AUTO 6 % (4-13); Mean Corpuscular HGB Conc 32.6 g/dL (31.5-36.5); Mean Corpuscular Volume 86 fL (80-100); NEUTROPHILS ABSOLUTE AUTO 9.54 K/mm3 (1.96-9.15); NEUTROPHILS PERCENT AUTO 79 % (41-73); NRBC ABSOLUTE 0.00 K/mm3 (0.00-0.02); NRBC Auto 0.0 /100 WBC (0.0-0.2); Platelet Count 265 K/mm3 (150-400); RDW Coefficient Variation 13.5 % (11.7-14.2); RDW Standard Deviation 41.8 fL (35.1-46.3)
[2025-03-08 05:39] LABS: Alanine Aminotransfer (ALT/SGP 28.0 U/L (12-78); Albumin, Blood 1.9 g/dL (3.4-5.0); Albumin/Globulin Ratio 0.4 (0.8-1.8); Anion Gap 13.0 mmol/L (3-11); Aspartate Aminotrans (AST/SGOT 72.0 U/L (12-37); Bilirubin, Total 0.5 mg/dL (0.1-1.0); Blood Urea Nitrogen 30.0 mg/dL (8-24); CO2, Blood 19.0 mmol/L (21-32); Calcium, Blood 8.7 mg/dL (8.5-10.1); Chloride, Blood 105.0 mmol/L (98-108); Creatinine, Blood 2.0 mg/dL (0.40-1.00); Globulin, Blood 4.8 g/dL (2.2-4.0); Glucose, Blood 187.0 mg/dL (70-99); Potassium, Blood 4.0 mmol/L (3.5-5.5); Sodium, Blood 133.0 mmol/L (136-145); Total Protein, Blood 6.7 g/dL (6.4-8.2)
--- NOTE | 2025-03-08 07:00 | NUR ---
PT REPORTS FEELING MUCH MORE COMFORTABLE THIS EVENING, WAS ABLE TO OBTAIN MORE REST THAN PREVIOUS NIGHT. NO COMPLAINTS OF PAIN, MILD DISCOMFORT AT TIMES REMEDIED WITH REPOSITIONING. PT'S LUNGS SOUNDING CLEARER WHEN COMPARED TO ASSESSMENT FROM PREVIOUS NIGHT.
[2025-03-08 07:38] VITALS: BP 160/63
[2025-03-08] MEDS ORDERED: LevoFLOXacin 750 MG/D5W 150ML 150 ML IV SCH (12:00)
[2025-03-08 15:25] VITALS: BP 160/64
[2025-03-08 19:23] VITALS: BP 147/60
--- NOTE | 2025-03-08 19:43 | NUR ---
SHIFT SUMMARY; PT A/OX4 AND CHAIRFAST PT IS WHEELCHAIR AT BASELINE. PT S BREATHING HAS IMPROVED FROM LAST SHIFT. PT HAS WHEEZING IN UPPER LUNG SPACES UPON AUSCULTATION. PT HAS HACKING, LOOSE COUGH THROUGHOUT THE DAY, CAUSING PT TO BECOME SOB AFTERWARDS, BUT IS ABLE TO CATCH HER BREATH. RT AT BEDSIDE WITHIN SCHEDULED TIMES. SEE ASSESSMENT NOTES. PT MEDICATED PER EMAR. THIS AFTERNOON PT TRANSFERED TO CHAIR VIA LIFT AND SAT IN CHAIR FOR ABOUT 2 HOURS. PT REPORTS THIS HAS IMPROVED HER BREATHING. BED ALSO CHANGED FOR PT DUE TO UNCOMFORTABILITY. BED IN LOWEST POSITION AND CALL LIGHT WITHIN REACH.
[2025-03-08 23:16] VITALS: BP 176/68
[2025-03-09 00:18] VITALS: BP 168/70
[2025-03-09 02:57] VITALS: BP 154/58
[2025-03-09 05:20] LABS: BASOPHILS ABSOLUTE AUTO 0.03 K/mm3 (0.00-0.23); BASOPHILS PERCENT AUTO 0 % (0-2); EOSINOPHILS ABSOLUTE AUTO 0.03 K/mm3 (0.00-0.68); EOSINOPHILS PERCENT AUTO 0 % (0-6); Hematocrit 22.3 % (33.0-51.0); Hemoglobin 7.2 g/dL (11.5-16.0); IMMATURE GRAN ABSOLUTE AUTO 0.43 K/mm3 (0.00-0.10); IMMATURE GRAN PERCENT AUTO 3 % (0-1); LYMPHOCYTES ABSOLUTE AUTO 1.59 K/mm3 (0.84-5.20); LYMPHOCYTES PERCENT AUTO 13 % (21-46); MONOCYTES ABSOLUTE AUTO 0.64 K/mm3 (0.16-1.47); MONOCYTES PERCENT AUTO 5 % (4-13); Mean Corpuscular HGB Conc 32.3 g/dL (31.5-36.5); Mean Corpuscular Volume 86 fL (80-100); NEUTROPHILS ABSOLUTE AUTO 9.81 K/mm3 (1.96-9.15); NEUTROPHILS PERCENT AUTO 78 % (41-73); NRBC ABSOLUTE 0.02 K/mm3 (0.00-0.02); NRBC Auto 0.2 /100 WBC (0.0-0.2); Platelet Count 291 K/mm3 (150-400); RDW Coefficient Variation 13.5 % (11.7-14.2); RDW Standard Deviation 42.9 fL (35.1-46.3)
[2025-03-09 06:49] LABS: Ferritin, Serum 262.0 ng/mL (8-252); Total Iron Binding Capacity 221.0 ug/dL (250-450)
[2025-03-09 06:52] LABS: Anion Gap 9.0 mmol/L (3-11); Blood Urea Nitrogen 34.0 mg/dL (8-24); CO2, Blood 22.0 mmol/L (21-32); Calcium, Blood 8.9 mg/dL (8.5-10.1); Chloride, Blood 104.0 mmol/L (98-108); Creatinine, Blood 1.85 mg/dL (0.40-1.00); Glucose, Blood 237.0 mg/dL (70-99); Potassium, Blood 4.2 mmol/L (3.5-5.5); Sodium, Blood 131.0 mmol/L (136-145)
[2025-03-09 07:36] VITALS: BP 127/72
--- NOTE | 2025-03-09 07:39 | NUR ---
A/Ox4, ANXIOUS AT TIMES. ELEVATED SBP, OTHER VSS ON RA. PT REPORTS CHEST PRESSURE, SOB; UNRELIEVED BY DUONEB OR SUPPLEMENTAL O2. MD CONTACTED; SERIAL TROPONINS MONITORED. PT REPORTS SELF-RESOLUTION OF CHEST PRESSURE THIS MORNING. SAFETY PRECAUTIONS IN PLACE, CALL LIGHT IN REACH.
[2025-03-09 14:39] VITALS: BP 162/63
[2025-03-09 14:53] VITALS: BP 142/60
--- NOTE | 2025-03-09 18:25 | NUR ---
PT ALERT AND ORIENTED X4, ON ROOM AIR WITH SCHEDULED NEBS, LUNGS COARSE AND DIMINISHED WITH EXPIRATORY WHEEZES. CEILING LIFT FOR TRANSFER-PT IS WC AT BASELINE, PUR WICK TO WALL SUCTION-PT TOLERATING DEVICE WELL. PT DOES GET ANXIOUS AT TIMES-PRN MEDICATION IN EMAR. BLOOD GLUSCOSE SLIGHTLY ELEVATING. NEED TO COLLECT STOOL SAMPLE. BED ALARM ON, CALL LIGHT IN REACH, PT CALLS APPROPRIATELY.
[2025-03-09 19:18] VITALS: BP 163/67
[2025-03-10] VITALS (7 sets, daily range): BP systolic 148–168; BP diastolic 52–74
[2025-03-10 05:23] LABS: Hematocrit 23.6 % (33.0-51.0); Hemoglobin 7.6 g/dL (11.5-16.0); Mean Corpuscular HGB Conc 32.2 g/dL (31.5-36.5); Mean Corpuscular Volume 86 fL (80-100); NRBC ABSOLUTE 0.00 K/mm3 (0.00-0.02); NRBC Auto 0.0 /100 WBC (0.0-0.2); Platelet Count 317 K/mm3 (150-400); RDW Coefficient Variation 13.5 % (11.7-14.2); RDW Standard Deviation 42.2 fL (35.1-46.3)
[2025-03-10 05:41] LABS: BAND PERCENT MAN 2 % (0-8); BASOPHILS ABSOLUTE MAN 0.00 K/mm3 (0.00-0.23); BASOPHILS PERCENT MAN 0 % (0-2); EOSINOPHILS ABSOLUTE MAN 0.00 K/mm3 (0.00-0.68); EOSINOPHILS PERCENT MAN 0 % (0-6); LYMPHOCYTES ABSOLUTE MAN 1.95 K/mm3 (0.84-5.20); LYMPHOCYTES PERCENT MAN 17 % (21-46); METAMYELOCYTE ABSOLUTE MAN 0.11 K/mm3 (0.00-0.00); METAMYELOCYTE PERCENT MAN 1 % (0-0); MONOCYTES ABSOLUTE MAN 0.45 K/mm3 (0.16-1.47); MONOCYTES PERCENT MAN 4 % (4-13); MYELOCYTE ABSOLUTE MAN 0.11 K/mm3 (0.00-0.00); MYELOCYTE PERCENT MAN 1 % (0-0); NEUTROPHILS ABSOLUTE MAN 8.83 K/mm3 (1.96-9.15); SEG NEUTROPHILS PERCENT MAN 75 % (41-73)
[2025-03-10 05:44] LABS: Anion Gap 10.0 mmol/L (3-11); Blood Urea Nitrogen 33.0 mg/dL (8-24); CO2, Blood 22.0 mmol/L (21-32); Calcium, Blood 8.7 mg/dL (8.5-10.1); Chloride, Blood 106.0 mmol/L (98-108); Creatinine, Blood 1.71 mg/dL (0.40-1.00); Glucose, Blood 218.0 mg/dL (70-99); Potassium, Blood 4.4 mmol/L (3.5-5.5); Sodium, Blood 134.0 mmol/L (136-145)
--- NOTE | 2025-03-10 06:17 | NUR ---
A/Ox4, VSS ON RA. MINIMAL COUGHING NOTED, LESS WHEEZING THAN 24 HR PRIOR. PT REPORTS FEELING BETTER. DENIES PAIN, SOB, NAUSEA. TRANSFERRED BY LIFT FROM CHAIR TO BED. TURNS SELF IN BED. NO BM OVERNIGHT, STILL AWAITING LAB SAMPLE. PT DENIES CONSTIPATION. NO ACUTE CHANGES OVERNIGHT. SAFETY PRECAUTIONS IN PLACE, CALL LIGHT IN REACH.
[2025-03-10] MEDS ORDERED: NS 250 ML IV PRN (11:10)
[2025-03-10] MEDS ORDERED: Polyethylene Glycol 3350 17 gm PO PRN (15:05)
--- NOTE | 2025-03-10 18:09 | NUR ---
SHIFT SUMMARY- HGB LOW, HCP IS WANTING STOOL SAMPLE TO SEE IF THIS MAY BE THE SOURCE. PT HAS BEEN CONSTIPATED AND MIRALAX WAS GIVEN TODAY TO TRY AND GET THAT SAMPLE. GLUTEAL PAIN TREATED WITH CYCLOBENZAPRINE TODAY.
[2025-03-11 03:54] VITALS: BP 154/51
[2025-03-11 05:02] LABS: Hematocrit 24.5 % (33.0-51.0); Hemoglobin 7.8 g/dL (11.5-16.0); Mean Corpuscular HGB Conc 31.8 g/dL (31.5-36.5); Mean Corpuscular Volume 87 fL (80-100); NRBC ABSOLUTE 0.00 K/mm3 (0.00-0.02); NRBC Auto 0.0 /100 WBC (0.0-0.2); Platelet Count 326 K/mm3 (150-400); RDW Coefficient Variation 13.4 % (11.7-14.2); RDW Standard Deviation 42.5 fL (35.1-46.3)
[2025-03-11 05:23] LABS: BAND PERCENT MAN 6 % (0-8); BASOPHILS ABSOLUTE MAN 0.00 K/mm3 (0.00-0.23); BASOPHILS PERCENT MAN 0 % (0-2); EOSINOPHILS ABSOLUTE MAN 0.00 K/mm3 (0.00-0.68); EOSINOPHILS PERCENT MAN 0 % (0-6); LYMPHOCYTES ABSOLUTE MAN 1.14 K/mm3 (0.84-5.20); LYMPHOCYTES PERCENT MAN 11 % (21-46); METAMYELOCYTE ABSOLUTE MAN 0.10 K/mm3 (0.00-0.00); METAMYELOCYTE PERCENT MAN 1 % (0-0); MONOCYTES ABSOLUTE MAN 0.72 K/mm3 (0.16-1.47); MONOCYTES PERCENT MAN 7 % (4-13); MYELOCYTE ABSOLUTE MAN 0.20 K/mm3 (0.00-0.00); MYELOCYTE PERCENT MAN 2 % (0-0); NEUTROPHILS ABSOLUTE MAN 8.21 K/mm3 (1.96-9.15); SEG NEUTROPHILS PERCENT MAN 73 % (41-73)
[2025-03-11 05:24] LABS: Anion Gap 10.0 mmol/L (3-11); Blood Urea Nitrogen 34.0 mg/dL (8-24); CO2, Blood 23.0 mmol/L (21-32); Calcium, Blood 9.2 mg/dL (8.5-10.1); Chloride, Blood 106.0 mmol/L (98-108); Creatinine, Blood 1.85 mg/dL (0.40-1.00); Glucose, Blood 124.0 mg/dL (70-99); Potassium, Blood 4.3 mmol/L (3.5-5.5); Sodium, Blood 135.0 mmol/L (136-145)
[2025-03-11 07:21] VITALS: BP 159/65
--- NOTE | 2025-03-11 07:40 | NUR ---
A/Ox4. NO ACUTE CHANGES OVERNIGHT. TRANSFERS BY LIFT. NO BM OVERNIGHT. SAFETY PRECAUTIONS IN PLACE, CALL LIGHT IN REACH.
--- NOTE | 2025-03-11 09:00 | NUR ---
pt laying in bed awake a/ox4, cooperative with care, follows commands well, denies pain, states she's been feeling much better than when she came in, lungs are clear in upper jauregui, dim with faint wheezing to bases, resp even and unlabored, no cough noted, but reports a protuctive cough, but doesn't know what color, hrr, no edema noted, left bka, sock on stump, piv to lfa site is clear and patent, btx4, abd flat soft nontender, voids wihtout diff, skin c/w/d, maew, omaira, call light in reach.
[2025-03-11 11:07] VITALS: BP 156/63
[2025-03-11] MEDS ORDERED: ALBU90OI INH (14:58)
[2025-03-11] MEDS ORDERED: VISBIOME 112.51 EACH PO (15:00)
[2025-03-11] MEDS ORDERED: IPRAT-ALBUT 0.5-3 ML INH (15:00)
[2025-03-11] MEDS ORDERED: LEVO750 PO (15:02)
[2025-03-11 15:21] VITALS: BP 146/67
--- NOTE | 2025-03-11 16:21 | NUR ---
Pt has been discharged to home, went over discharge instructions with her, she verbalized understanding, [facility], piv removed intact, left with her family via wheelchair with all her belongings.
== END 2025-03-11 16:23 | disposition home or self-care (01) | DRG 871 ==
LOC: ER 09:49 → MEDS 09:50 → ER 09:50 → MEDS 15:06 → ER 15:06 → MEDS 15:06
PROVIDERS: Family Medicine; Student in an Organized Health Care Education/Training Program; ADMIT Internal Medicine
DX: A41.9 Sepsis, unspecified organism (principal); J18.9 Pneumonia, unspecified organism; J45.901 Unspecified asthma with (acute) exacerbation; E11.22 Type 2 diabetes mellitus with diabetic chronic kidney disease; I12.9 Hypertensive chronic kidney disease with stage 1 through stage 4 chronic kidney disease, or unspecified chronic kidney disease; N18.32 Chronic kidney disease, stage 3b; E03.9 Hypothyroidism, unspecified; E78.5 Hyperlipidemia, unspecified; E11.51 Type 2 diabetes mellitus with diabetic peripheral angiopathy without gangrene; G40.909 Epilepsy, unspecified, not intractable, without status epilepticus; D63.1 Anemia in chronic kidney disease; Z89.512 Acquired absence of left leg below knee
CPT/HCPCS: 36415; 71046; 72170; 73552; 73610; 80048; 80053; 82607; 82728; 82746; 82803; 82947; 83540; 83550; 83605; 83880; 84484; 85025; 87040; 87637; 93005; 93010; 94640; 94664; 94760; 96361; 96365; 96372; 96375; 99285-25; A6590; A9270; G0378; J0360; J1650; J1815; J1938; J1956; J2919; J7030; J7050